=== PATIENT | female | born 2000 | race Caucasian/White ===

== ENCOUNTER 2023-01-18 11:18 | Emergency (ER) | payer OTHER ==
[~2023-01-18] VITALS: Ht 152.4 cm; Wt 81.6 kg
[2023-01-18 11:19] VITALS: BP 116/79; PULSE 100; RESP 20; TEMP 98.3; O2SAT 99
[2023-01-18 11:30] VITALS: O2SAT 99
== END 2023-01-18 12:55 | disposition home or self-care (01) ==
LOC: MED 11:18
DX: S29.012A Strain of muscle and tendon of back wall of thorax, initial encounter (principal); V49.88XA Car occupant (driver) (passenger) injured in other specified transport accidents, initial encounter; Y93.89 Activity, other specified; Y92.89 Other specified places as the place of occurrence of the external cause; Y99.8 Other external cause status
CPT/HCPCS: 71046; 81025; 93005; 99283